=== PATIENT | male | born 1985 | race Caucasian/White ===

== ENCOUNTER 2025-02-26 09:02 | Emergency (ER) | payer OTHER ==
[2025-02-26] MEDS: Silver Sulfadiazine 1% Crm 50 GM Tube TOP ONE (09:48)
== END 2025-02-26 10:08 | disposition home or self-care (01) ==
LOC: FB.ED 09:02
DX: T25.221A Burn of second degree of right foot, initial encounter (principal); X12.XXXA Contact with other hot fluids, initial encounter; Y99.0 Civilian activity done for income or pay
CPT/HCPCS: 36415; 80320; 99000; 99283; A9270; G0480